=== PATIENT | male | born 1960 | race Caucasian/White ===

== ENCOUNTER 2018-12-13 07:00 | Emergency (ER) | payer OTHER ==
[2018-12-13 07:37] VITALS: TEMP 97.5; BMI 24.7
--- NOTE | 2018-12-13 07:49 | PDOC ---
History of Present Illness - History of Present Illness Initial Comments: 12/13/18 07:47 58 yo M with h/o HTN, asthma, cardiac pacemaker, CKD ( peritoneal dialysis daily ), who p/w SOB. 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 States that SOB is similar to SOB asx. w/ weekly asthma exacerbations. Sleeps with 2 pillows at night normally. Reports running out of his home albuterol. Pt. visiting from [place], with at bedside. No other complaints. Pt. on Eliquis. Patient denies GALICIA, vision change, palpitations, cough, wheezing, orthopena, PND , leg swelling/pain, N/V, F,C, CP, urinary complaints, hematuria, BPR, abdominal pain, diarrhea, constipation, lightheadedness, weakness, sensory changes. PMHx: as noted above. Denies h/o ACS/VA, stent placement, CABG, CVA. ROS: as noted SHx: Denies Etoh, IVDA, tobacco use Allergies: NKDA <Giuliano Marlow - Last Filed: 12/13/18 09:23> <Elisa Clark - Last Filed: 12/13/18 09:27> - General Chief Complaint: Asthma Stated Complaint: ASTHMA Time Seen by Provider: 12/13/18 07:47 Past History - Past Medical History Asthma: Yes COPD: No Dialysis: Yes (peritoneal dyalysis) HTN: Yes - Surgical History Cardiac Surgery: Yes (diffibulator) - Suicide/Smoking/Psychosocial Hx Smoking History: Never smoked <Giuliano Marlow - Last Filed: 12/13/18 09:23> <Elisa Clark - Last Filed: 12/13/18 09:27> - Past Medical History Allergies/Adverse Reactions: Allergies Allergy/AdvReac Type Severity Reaction Status Date / Time No Known Allergies Allergy Verified 12/13/18 07:26 Home Medications: Ambulatory Orders Albuterol Sulfate Inhaler - [Ventolin HFA Inhaler -] 1 - 2 inh PO Q4H #2 inhaler 12/13/18 Amoxicillin/Potassium Clav [Augmentin 875-125 Tablet] 1 each PO DAILY #4 tablet MDD 1 tab 12/13/18 Azithromycin 500 mg PO DAILY #4 tablet MDD 1 tab 12/13/18 Review of Systems - Review of Systems Comments:: 12/13/18 07:47 GENERAL/CONSTITUTIONAL: No fever or chills. No weakness. HEAD, EYES, EARS, NOSE AND THROAT: No change in vision. No ear pain or discharge. No sore throat. CARDIOVASCULAR: + SOB. No chest pain. RESPIRATORY: No cough, wheezing, or hemoptysis. GASTROINTESTINAL: No nausea, vomiting, diarrhea or constipation. GENITOURINARY: No dysuria, frequency, or change in urination. MUSCULOSKELETAL: No joint or muscle swelling or pain. No neck or back pain. SKIN: No rash NEUROLOGIC: No headache, vertigo, loss of consciousness, or change in strength/ sensation. ENDOCRINE: No increased thirst. No abnormal weight change HEMATOLOGIC/LYMPHATIC: No anemia, easy bleeding, or history of blood clots. ALLERGIC/IMMUNOLOGIC: No hives or skin allergy. <Giuliano Marlow - Last Filed: 12/13/18 09:23> *Physical Exam - Vital Signs Last Vital Signs Temp Pulse Resp BP Pulse Ox 97.5 F L 97 H 18 134/91 99 12/13/18 07:22 12/13/18 07:22 12/13/18 07:22 12/13/18 07:22 12/13/18 07:22 - Physical Exam Comments: 12/13/18 07:48 GENERAL: Awake, alert, and fully oriented, in no acute distress HEAD: No signs of trauma, normocephalic, atraumatic EYES: PERRLA, EOMI, sclera anicteric, conjunctiva clear ENT: Auricles normal inspection, hearing grossly normal, nares patent, oropharynx clear without exudates. Moist mucosa NECK: Normal ROM, supple, no lymphadenopathy, JVD, or masses LUNGS: No distress, speaks full sentences, clear to auscultation bilaterally HEART: Palpable cardiac pacemaker on r sided chest wall. Regular rate and rhythm , normal S1 and S2, no murmurs, rubs or gallops, peripheral pulses normal and equal bilaterally. ABDOMEN: Nontender LLQ abdomen with gauze in place over dialysis site. Soft, nontender, NDS, normoactive bowel sounds. No guarding, no rebound. No masses EXTREMITIES : Normal inspection, Normal range of motion, no edema. No clubbing or cyanosis. NEUROLOGICAL: Cranial nerves II through XII grossly intact. Normal speech, normal gait, no focal sensorimotor deficits SKIN: Warm, Dry, normal turgor, no rashes or lesions noted <Pelon Marlowson - Last Filed: 12/13/18 09:23> - Vital Signs Last Vital Signs Temp Pulse Resp BP Pulse Ox 97.5 F L 97 H 18 134/91 99 12/13/18 07:22 12/13/18 07:22 12/13/18 07:22 12/13/18 07:22 12/13/18 07:22 <Elisa Clark - Last Filed: 12/13/18 09:27> ED Treatment Course - Medications Given in the ED: ED Medications Discontinued Medications Generic Name Dose Route Start Last Admin Trade Name Freq PRN Reason Stop Dose Admin Albuterol/Ipratropium 1 amp 12/13/18 08:01 12/13/18 08:16 Duoneb - NEB 12/13/18 08:02 1 amp ONCE ONE Administration Albuterol/Ipratropium 1 amp 12/13/18 08:14 12/13/18 08:28 Duoneb - NEB 12/13/18 08:15 1 amp ONCE ONE Administration Albuterol/Ipratropium 1 amp 12/13/18 08:15 12/13/18 08:20 Duoneb - NEB 12/13/18 08:16 1 amp ONCE ONE Administration <Elisa Clark - Last Filed: 12/13/18 09:27> Medical Decision Making - Medical Decision Making 12/13/18 08:03 58 yo M with h/o HTN, asthma, cardiac pacemaker, CKD ( peritoneal dialysis daily ), who p/w SOB. Vitals wnl, AF, A&OX3. Physical exam unremarkable. ACS/VA r/o. R /o PNA. Patient with absent physical evidence of fluid overload. Absent edema, crackles in lungs, abdomen distension, breathing non labored. PERC + based on age, low risk PE Wells criteria. Will reasses. Ed Course: 12/13/18 08:07 CXR: BL basilar pulmonary infiltrates. Treat with Augmentin, Azithromycin Albuterol sent to pharmacy Patient EKG atrial sensed, ventricle paced. Nml axis. QTc 579, nml ID, QRS intervals. Duoneb 3 amp Pt. stable and ready for d/c. Absent SOB in ED D/c with return precautions <Giuliano Marlow - Last Filed: 12/13/18 09:23> *DC/Admit/Observation/Transfer <Giuliano Marlow - Last Filed: 12/13/18 09:23> - Discharge Dispostion Decision to Admit order: No <Elisa Clark - Last Filed: 12/13/18 09:27> Diagnosis at time of Disposition: SOB (shortness of breath), Pneumonia, Asthma exacerbation - Discharge Dispostion Disposition: HOME Condition at time of disposition: Stable - Prescriptions Prescriptions: Albuterol Sulfate Inhaler - [Ventolin HFA Inhaler -] 1 - 2 inh PO Q4H #2 inhaler Amoxicillin/Potassium Clav [Augmentin 875-125 Tablet] 1 each PO DAILY #4 tablet MDD 1 tab Azithromycin 500 mg PO DAILY #4 tablet MDD 1 tab - Referrals Referrals: [facility] [Provider Group] [facility] [Provider Group] - Patient Instructions Printed Discharge Instructions: Asthma -- Adult, DI for Pneumonia -- Adult, DI for Shortness of Breath Additional Instructions: Please return to the emergency department with any new or worsening symptoms or concerns. Please follow up with your oracle programmer analyst or primary care physician within 72 hours. Please take albuterol daily as needed. Please take Azithromycin and Augmentin daily for pain. salt water gargles, 1-2 spoonful of honey and warm lemon tea is appropriate as well for soothing qualities for sore throat/cough. minimize spread of infection given contagious nature, and cover your mouth and wash your hands adequately with soap and water. Stay well hydrated and rest. Cool air - walk around outdoors in the evening. May also try hot shower steam. This can alleviate the congestion and cough. May use the albuterol inhaler every 4-6 hours as needed for cough and breathing to clear up your airways. Return precautions include respiratory distress, difficulty breathing, cyanosis , chest pain, lethargy, confusion, dehydration, high fevers or pain. Por favor regrese al departamento de emergencias con cualquier sntoma o inquietud nueva o que empeore. Por favor adeline un seguimiento con medel neumlogo o mdico de atencin primaria dentro de las 72 horas. Por favor tome albuterol diariamente segn sea necesario. Por favor tome Azithromycin and Augmentin diariamente para el dolor. Las grgaras de agua salada, 1-2 cucharadas de miel y t de limn tibio tambin son apropiadas para calmar el dolor de garganta / tos. reduzca al mnimo la propagacin de la infeccin debido a la naturaleza contagiosa, y cubra medel boca y lvese las roxanne adecuadamente con agua y jabn. Mantente aide hidratado y descansa. Aire fresco - caminar al aire keven por la noche. Tambin puede probar el vapor de la ducha caliente. [place] puede aliviar la congestin y la tos. Puede usar el inhalador de albuterol cada 4-6 horas segn sea necesario para la tos y la respiracin para aclarar las vas respiratorias. Las precauciones de retorno incluyen dificultad respiratoria, dificultad para respirar, cianosis, dolor de pecho, letargo, confusin, deshidratacin, fiebre haroldo o dolor. Print Language: EQUATORIAL GUINEAN
[2018-12-13] MEDS ORDERED: ALBUTEROL SO4 2.5/IPRATROPIUM 0.5 INH SOL 3 ML VIAL.NEB. NEB ONE ×5 (08:01→08:17)
--- NOTE | 2018-12-13 08:13 | PDOC ---
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 Sx consistent with weekly asthma exacerbations. Sleeps with 2 pillows at night normally. Reports running out of his home albuterol. Pt. visiting from [place], with at bedside. No other complaints. Pt. on Eliquis. ran out of albuterol neb solutions. he is from [place], attending a convention this week. attributes his SOB exacerbation from recent heat wave and dehydration Patient denies GALICIA, vision change, palpitations, cough, wheezing, orthopena, PND , leg swelling/pain, N/V, F,C, CP, urinary complaints, hematuria, BPR, abdominal pain, diarrhea, constipation, lightheadedness, weakness, sensory changes. 12/13/18 09:24 - Physicial Exam PE: 12/13/18 09:21 Agree with the resident's HPI and PE as documented in the electronic medical record. NAD, well appearing, EOMI, PERRL,, nl conjunctiva, anicteric; neck supple. lungs clear, no respiratory distress, RRR, no murmur, left chest wall PPM palpated. abdomen soft nontender. Back nontender. FERREIRA x4, no focal neuro deficits. No peripheral edema. normal color for ethnicity, WWP. - Medical Decision Making 12/13/18 09:22 hpi as documented VS reviewed, wnl. no fever, no hypoxia, no respiratory distress EKG with A sensed V paced pattern, appropriate ST/T wave discordance, normal intervals CXR with bilateral pulmonary infiltrates treat as pneumonia, CAP with risk factors/pulmonary disease. trial of oral abx. Augmentin and Azithromycin for CAP/typical and atypical coverage, no indication for admission at this time. pt and family comfortable with this plan rx albuterol neb solution ampules, every 4-6 hours as needed for sob abx, take with food and adequate hydration with the heat wave Pt to be discharged in stable condition. Patient and family made aware of clinical impression, treatment recommendations and disposition plan, return precautions discussed (including but not limited to new or persistent/worsening symptoms, pain, fevers, or signs of infection, chest pain, respiratory distress , inability to tolerate oral intake, dehydration, syncope, or neurologic changes ). Follow up with PMD and/or specialist as recommended, follow up information provided, take medications as instructed for duration of time. continue with supportive care, avoid triggers and precipitants. All questions answered to patient's satisfaction and expressed understanding and comfort with this. At the time of discharge, the patient is alert, clinically improved, tolerating po and verbalizes understanding of instructions, satisfied with the care received and felt comfortable with the plan. Patient does not suffer from an acute life- threatening medical condition at this time and is safe for outpatient follow- up. Heart Score/ECG Review #1 ECG reviewed & interpreted by me at: 08:05 General ECG Interpretation: Normal Rate, Normal Intervals Compared to previous ECG there are: Previous ECG unavail 12/13/18 09:25 atrial sensed V paced pattern, neg for ST T wave discordance >5mm or concordance; appropriate discordance. normal intervals.
[2018-12-13] MEDS ORDERED: AZITHROMYCIN 250 MG TABLET PO ONE (09:20)
[2018-12-13] MEDS ORDERED: AMOX TR/POT CLAV 875MG/125MG TABLETS (FP) PO ONE (09:20)
[2018-12-13] MEDS ORDERED: AZITHROMYCIN 250 MG TABLET ONE (09:24)
[2018-12-13] MEDS ORDERED: AMOX TR/POT CLAV 875MG/125MG TABLETS (FP) ONE (09:25)
[2018-12-13 09:35] VITALS: BP 138/78; PULSE 93
--- NOTE | 2018-12-14 00:01 | EKG ---
Test Reason : Blood Pressure : / mmHG Vent. Rate : 098 BPM Atrial Rate : 098 BPM P-R Int : 136 ms QRS Dur : 154 ms QT Int : 454 ms P-R-T Axes : 059 -78 073 degrees QTc Int : 579 ms POOR DATA QUALITY, INTERPRETATION MAY BE ADVERSELY AFFECTED Atrial-sensed ventricular-paced rhythm Biventricular pacemaker detected ABNORMAL ECG NO PREVIOUS ECGS AVAILABLE Confirmed by ARON JUÁREZ, BROOKLYNN ([id number]) on 12/14/2018 12:00:35 AM Referred By: Confirmed By:BROOKLYNN SHARP MD
== END 2018-12-13 09:35 | disposition home or self-care (01) ==
LOC: JER 07:00
PROC: 3E0F7GC Introduction of Other Therapeutic Substance into Respiratory Tract, Via Natural or Artificial Opening (ICD-10-PCS; principal; 2018-12-13)
DX: J18.9 Pneumonia, unspecified organism (principal); J45.901 Unspecified asthma with (acute) exacerbation; Z95.0 Presence of cardiac pacemaker; I12.9 Hypertensive chronic kidney disease with stage 1 through stage 4 chronic kidney disease, or unspecified chronic kidney disease; N18.9 Chronic kidney disease, unspecified
CPT/HCPCS: 71045-TC-FY; 93005; 93010; 94640; 99283-25